=== PATIENT | male | born 1965 | race Caucasian/White ===

== ENCOUNTER 2025-04-27 20:32 | Inpatient (IN) | payer MEDICARE ==
[~2025-04-27] VITALS: Ht 185.4 cm; Wt 80.1 kg
[2025-04-27 21:10] LABS: BASOPHILS ABSOLUTE AUTO 0.05 K/mm3 (0.00-0.23); BASOPHILS PERCENT AUTO 1 % (0-2); EOSINOPHILS ABSOLUTE AUTO 0.03 K/mm3 (0.00-0.68); EOSINOPHILS PERCENT AUTO 0 % (0-6); Hematocrit 20.8 % (37.0-53.0); Hemoglobin 6.6 g/dL (13.5-17.5); IMMATURE GRAN ABSOLUTE AUTO 0.02 K/mm3 (0.00-0.10); IMMATURE GRAN PERCENT AUTO 0 % (0-1); LYMPHOCYTES ABSOLUTE AUTO 1.07 K/mm3 (0.84-5.20); LYMPHOCYTES PERCENT AUTO 16 % (21-46); MONOCYTES ABSOLUTE AUTO 0.64 K/mm3 (0.16-1.47); MONOCYTES PERCENT AUTO 9 % (4-13); Mean Corpuscular HGB Conc 31.7 g/dL (31.5-36.5); Mean Corpuscular Volume 78 fL (80-100); NEUTROPHILS ABSOLUTE AUTO 5.11 K/mm3 (1.96-9.15); NEUTROPHILS PERCENT AUTO 74 % (41-73); NRBC ABSOLUTE 0.00 K/mm3 (0.00-0.02); NRBC Auto 0.0 /100 WBC (0.0-0.2); Platelet Count 580 K/mm3 (150-400); RDW Coefficient Variation 21.6 % (11.7-14.2); RDW Standard Deviation 59.8 fL (35.1-46.3)
[2025-04-27 22:05] LABS: Alanine Aminotransfer (ALT/SGP 35.0 U/L (12-78); Albumin, Blood 3.7 g/dL (3.4-5.0); Albumin/Globulin Ratio 1.0 (0.8-1.8); Anion Gap 10.0 mmol/L (3-11); Aspartate Aminotrans (AST/SGOT 56.0 U/L (12-37); Bilirubin, Total 0.4 mg/dL (0.1-1.0); Blood Urea Nitrogen 8.0 mg/dL (8-24); CO2, Blood 28.0 mmol/L (21-32); Calcium, Blood 9.0 mg/dL (8.5-10.1); Chloride, Blood 81.0 mmol/L (98-108); Creatinine, Blood 0.47 mg/dL (0.60-1.20); Globulin, Blood 3.7 g/dL (2.2-4.0); Glucose, Blood 130.0 mg/dL (70-99); Potassium, Blood 3.3 mmol/L (3.5-5.5); Sodium, Blood 116.0 mmol/L (136-145); Total Protein, Blood 7.4 g/dL (6.4-8.2)
[2025-04-27] MEDS ORDERED: FLU VACC TS2025-26(6MOS UP)/PF 45 MCG/0.5 ML SYRINGE IM SCH (23:00)
[2025-04-27] MEDS ORDERED: [UNRECOGNIZED DRUG - CODE] PO (23:22)
[2025-04-27] MEDS ORDERED: Primidone50 MG PO (23:22)
[2025-04-27] MEDS ORDERED: LEVE500 PO ×2 (23:23→23:24)
[2025-04-28] VITALS (19 sets, daily range): BP systolic 113–200; BP diastolic 63–151
[2025-04-28 00:17] LABS: IMMATURE RETIC FRACTION 27.50 % (2.3-16.0); RETIC HGB EQUIVALENT 20.50 pg (28.20-36.60); RETICULOCYTE ABSOLUTE 0.0451 M/mm3 (0.0200-0.1100); RETICULOCYTE COUNT PERCENT 1.69 % (0.50-2.50)
[2025-04-28 01:16] LABS: Ferritin, Serum 9.0 ng/mL (26-388); Magnesium, Blood 1.7 mg/dL (1.6-2.4); Thyroid Stimulating Hormone 1.25 uIU/mL (0.360-4.800); Total Iron Binding Capacity 502.0 ug/dL (250-450); Uric Acid, Blood 2.3 mg/dL (3.5-7.2)
[2025-04-28 01:30] LABS: Lactate Dehydrogenase (Ld),Bld 328.0 U/L (100-240)
[2025-04-28 01:50] LABS: Phosphorus, Blood 2.7 mg/dL (2.5-4.9)
[2025-04-28 01:54] LABS: Osmolality, Serum 249.0 mos/KG (275-300)
[2025-04-28] MEDS ORDERED: Sod Ferric Gluc Complx/Sucrose 125 MG in NS 100 ML IV ONE (02:00)
--- NOTE | 2025-04-28 02:30 | NUR ---
ARRIVAL TO ICU: PT ARRIVED TO ICU 3 FROM ER @ 0139 04/28/2025. REPORT RECEIVED FROM COMPONENT LAB TECH. PT ARRIVED VIA GURNEY AND WAS TRANSFERRED TO BED VIA SHEET DRAW. PT IS A&OX4 GCS15. PT STATES THAT THEY ARE HAVING 8/10 BACK PAIN BUT NO CP OR SOB AT THIS TIME. PT IS ON 3% NS GTT PER EMR ORDERS. LUNG SOUNDS ARE CLEAR AND EQUAL, ON RA WITH SPO2 >95%. SINUS RYTHM, PT HAS BEEN HYPERTENSIVE BUT WHILE NOT REMAIN STILL WHEN ATEMTPTING TO CHECK BP, SBP: 150-190'S. HR: 80-90'S. IV: PERIPHERAL IN LAC. SKIN: HAS SPOT ON L HIP, PT STATES IT IS FROM RING [place], PICTURE IN CHART. LINES AND CORDS PLACED OUT REACH. CALL LIGHT PLACED WITHIN REACH.
[2025-04-28] MEDS ORDERED: NS 500 ML IV SCH (02:50)
[2025-04-28 03:19] LABS: Source, Urine Clean Catch
[2025-04-28 03:37] LABS: Bilirubin, Urine Neg (Neg); Glucose Qualitative, Urine Neg (Neg); Ketones, Urine Neg (Neg); Leukocyte Esterase, Urine Neg (Neg); Protein, Urine 2+ (Neg); Specific Gravity, Urine 1.010 (1.003-1.022); Urobilinogen, Urine NORM (Normal)
[2025-04-28 03:50] LABS: Color, Urine Yellow (P-Yellow); Red Blood Cells, Urine 0-2 /hpf (0-2); White Blood Cells, Urine 0-2 /hpf (0-5)
--- NOTE | 2025-04-28 06:23 | NUR ---
SHIFT SUMMARY: PT IS DOING WELL AND HAS BEEN RESTLESS IN BED. ON 3% NS PER EMR ORDERS AND RECIEVED 1 UNIT PRBC'S. PT STATES HAVING 8/10 BACK PAIN AND HAS BEEN GIVEN PAIN MEDS PER EMR ORDERS. PT DENIES ANY CP OR SOB DURING THE SHIFT. PT ON RA WITH SPO2 >95%. SINUS RYTHM, PT REMAINS HYPERTENSIVE BUT ALSO WON'T REMAIN STILL WHILE BLOOD PRESSURE CUFF IS CYCLING. HR: 60-90'S. IV: PERIPHERAL IN LAC, POWERGLIDE IN RUE. PT HAS BEEN HAVING THE URGE TO URINATED BUT HAS BEEN UNABLE TO. RAYMOND CATHTER WAS PLACED AND IS DRAINING TO GRAVITY. PT IS ABLE TO STAND WITH 2-PERSON ASSIST, THEY ARE WEAK AND SHAKY WHEN STANDING. LINES, CORDS, AND TUBES PLACED OUT OF REACH. CALL LIGHT PLACED WITHIN REACH, BED PLACED IN LOWEST POSITION AND BED ALARM IS ON.
--- NOTE | 2025-04-28 13:17 | NUR ---
TRANSFER NOTE: patient admitted with hyponatremia, sodium increased to 125 with hypertonic saline, hypertonic saline d/c'd. Patient order to PCU status, Dr Crews aware of urinary retention and indewelling pepper, wishes for folwy to remain for now. Report called to [facility] and patient transfered to PCU 3 at 13:10
--- NOTE | 2025-04-28 13:27 | NUR ---
PT ARRIVED IN THE ROOM PCU 03 VIA WHEELCHAIR PT ABLE TO STAND AND TRASNFER. REPORT RECEIVED FROM GONZÁLEZ TORRES. NOVEMBER AT THE BEDS SIDE REQUESTING TO SPEAK WITH THE PROVIDER. PROVIDER CALLED AND WE'LL BE HERE IN AN HR OR TWO. MADE AWARE. PT NOW RESTING COMFORTABLE IN BED. CALL LIGHTS IN REACH WILL CONTINUE TO MONITOR
[2025-04-28 15:45] LABS: Hematocrit 27.7 % (37.0-53.0); Hemoglobin 8.8 g/dL (13.5-17.5); Mean Corpuscular HGB Conc 31.8 g/dL (31.5-36.5); Mean Corpuscular Volume 82 fL (80-100); NRBC ABSOLUTE 0.00 K/mm3 (0.00-0.02); NRBC Auto 0.0 /100 WBC (0.0-0.2); Platelet Count 635 K/mm3 (150-400); RDW Coefficient Variation 19.6 % (11.7-14.2); RDW Standard Deviation 57.1 fL (35.1-46.3)
[2025-04-28] MEDS ORDERED: Polyethylene Glycol 3350 17 gm PO PRN (18:00)
[2025-04-28] MEDS ORDERED: Docusate Sodium/Senna 1 Tab PO SCH (21:00)
[2025-04-29 03:42] VITALS: BP 152/107
[2025-04-29 03:55] LABS: BASOPHILS ABSOLUTE AUTO 0.06 K/mm3 (0.00-0.23); BASOPHILS PERCENT AUTO 1 % (0-2); EOSINOPHILS ABSOLUTE AUTO 0.20 K/mm3 (0.00-0.68); EOSINOPHILS PERCENT AUTO 2 % (0-6); Hematocrit 26.2 % (37.0-53.0); Hemoglobin 8.4 g/dL (13.5-17.5); IMMATURE GRAN ABSOLUTE AUTO 0.05 K/mm3 (0.00-0.10); IMMATURE GRAN PERCENT AUTO 0 % (0-1); LYMPHOCYTES ABSOLUTE AUTO 1.85 K/mm3 (0.84-5.20); LYMPHOCYTES PERCENT AUTO 16 % (21-46); MONOCYTES ABSOLUTE AUTO 1.12 K/mm3 (0.16-1.47); MONOCYTES PERCENT AUTO 10 % (4-13); Mean Corpuscular HGB Conc 32.1 g/dL (31.5-36.5); Mean Corpuscular Volume 80 fL (80-100); NEUTROPHILS ABSOLUTE AUTO 8.37 K/mm3 (1.96-9.15); NEUTROPHILS PERCENT AUTO 72 % (41-73); NRBC ABSOLUTE 0.00 K/mm3 (0.00-0.02); NRBC Auto 0.0 /100 WBC (0.0-0.2); Platelet Count 576 K/mm3 (150-400); RDW Coefficient Variation 20.1 % (11.7-14.2); RDW Standard Deviation 58.4 fL (35.1-46.3)
[2025-04-29 04:28] LABS: Alanine Aminotransfer (ALT/SGP 35.0 U/L (12-78); Albumin, Blood 3.8 g/dL (3.4-5.0); Albumin/Globulin Ratio 1.0 (0.8-1.8); Anion Gap 6.0 mmol/L (3-11); Aspartate Aminotrans (AST/SGOT 47.0 U/L (12-37); Bilirubin, Total 0.4 mg/dL (0.1-1.0); Blood Urea Nitrogen 7.0 mg/dL (8-24); CO2, Blood 31.0 mmol/L (21-32); Calcium, Blood 8.7 mg/dL (8.5-10.1); Chloride, Blood 92.0 mmol/L (98-108); Creatinine, Blood 0.47 mg/dL (0.60-1.20); Globulin, Blood 3.8 g/dL (2.2-4.0); Glucose, Blood 120.0 mg/dL (70-99); Potassium, Blood 3.4 mmol/L (3.5-5.5); Sodium, Blood 126.0 mmol/L (136-145); Total Protein, Blood 7.6 g/dL (6.4-8.2)
--- NOTE | 2025-04-29 05:35 | NUR ---
SHIFT SUMMARY A/OX4, VERBALIZES NEEDS AND USES CALL LIGHT APPROPRIATELY. ENDORSES LOWER BACK PAIN, TREATED PER EMAR. ON ROOM AIR, SATS ABOVE 95%. ON CONTINUOUS CARDIAC TELEMETRY. SINUS ARRHYTHMIA. BP 140 S-160 S. HE IS A 1P ASSIST TO THE BEDSIDE COMMODE, VERY WEAK, UNSTEADY GAIT. FREQUENT ATTEMPTS FOR BM, BUT UNSUCCESSFUL, ADMINISTERED STOOL SOFTENERS. K+ AT 3.4 WITH MORNING LABS, NOTIFIED, POTASSIUM REPLACEMENT ORDERED AND ADMINISTERED.
[2025-04-29 08:06] VITALS: BP 161/88
[2025-04-29] MEDS ORDERED: NS 1,000 ML IV SCH (08:35)
[2025-04-29] MEDS ORDERED: Iron Dextran 50 MG / ML 2ML Vial IV ONE (08:50)
[2025-04-29 09:24] LABS: Hematocrit 26.7 % (37.0-53.0); Hemoglobin 8.3 g/dL (13.5-17.5); Mean Corpuscular HGB Conc 31.1 g/dL (31.5-36.5); Mean Corpuscular Volume 82 fL (80-100); NRBC ABSOLUTE 0.00 K/mm3 (0.00-0.02); NRBC Auto 0.0 /100 WBC (0.0-0.2); Platelet Count 609 K/mm3 (150-400); RDW Coefficient Variation 19.9 % (11.7-14.2); RDW Standard Deviation 59.0 fL (35.1-46.3)
[2025-04-29] MEDS ORDERED: Iron Dextran 975 MG in NS 250 ML IV ONE (10:00)
[2025-04-29 10:09] LABS: IMMATURE RETIC FRACTION 25.80 % (2.3-16.0); RETIC HGB EQUIVALENT 19.30 pg (28.20-36.60); RETICULOCYTE ABSOLUTE 0.1171 M/mm3 (0.0200-0.1100)
[2025-04-29 10:11] LABS: RETICULOCYTE COUNT PERCENT 3.58 % (0.50-2.50)
[2025-04-29 12:42] VITALS: BP 174/91
[2025-04-29] MEDS ORDERED: HydrALAZINE HCl 20 MG / ML 1ML Vial IV PRN (13:50)
[2025-04-29] MEDS ORDERED: Diazepam 5 MG / ML 2ML SYR IV PRN (13:50)
[2025-04-29 15:48] VITALS: BP 138/78
--- NOTE | 2025-04-29 18:02 | NUR ---
PT SUMMARY; MRI OF HEAD CURRENTLY BEING DONE AT THIS TIME, FIRST ATTEMPT WAS NOT SUCCESSFUL DUE TO CLAUSTROPHOBIA. VALIUM IV GIVEN PRIOR TO MRI. VITALS HAS BEEN STABLE. PT MEDICATED FOR BACK PAIN AND HEADACHE PER EMAR. IRON TRANSFUSED THIS MORNING. HGB STABLE. LAST SODIUM WAS 127. PT HAD A LOOSE BM TWICE THIS MORNING DARK GREEN IN COLOR. PT HAS BEEN ASKING FOR SOME LAXATIVE THIS MORNING WHICH MIRALX WAS GIVEN THEN THIS AFTERNOON PT WAS ASKING FOR ANTI DIARRHEAL PT HAS BEEN IN THE COMMODE MULTIPLE TIMES WITH NO BM RESULT. CONCERNS REPORTED TO DR MARLEY, AWAITING FOR MRI RESULT AT THIS TIME. AT THE BEDSIDE AWARE OF THE PLAN OF CARE. RAYMOND DRAINING DARK ORANGE URINE VIA GRAVITY. NO OTHER ISSUES REPORTED WILL REPORT TO ONCOMING SHIFT
[2025-04-29 19:28] VITALS: BP 148/93
[2025-04-30] VITALS (9 sets, daily range): BP systolic 135–175; BP diastolic 81–104
[2025-04-30 04:10] LABS: BASOPHILS ABSOLUTE AUTO 0.07 K/mm3 (0.00-0.23); BASOPHILS PERCENT AUTO 0 % (0-2); EOSINOPHILS ABSOLUTE AUTO 0.12 K/mm3 (0.00-0.68); EOSINOPHILS PERCENT AUTO 1 % (0-6); Hematocrit 27.4 % (37.0-53.0); Hemoglobin 8.5 g/dL (13.5-17.5); IMMATURE GRAN ABSOLUTE AUTO 0.09 K/mm3 (0.00-0.10); IMMATURE GRAN PERCENT AUTO 0 % (0-1); LYMPHOCYTES ABSOLUTE AUTO 1.40 K/mm3 (0.84-5.20); LYMPHOCYTES PERCENT AUTO 7 % (21-46); MONOCYTES ABSOLUTE AUTO 1.21 K/mm3 (0.16-1.47); MONOCYTES PERCENT AUTO 6 % (4-13); Mean Corpuscular HGB Conc 31.0 g/dL (31.5-36.5); Mean Corpuscular Volume 83 fL (80-100); NEUTROPHILS ABSOLUTE AUTO 17.91 K/mm3 (1.96-9.15); NEUTROPHILS PERCENT AUTO 86 % (41-73); NRBC ABSOLUTE 0.00 K/mm3 (0.00-0.02); NRBC Auto 0.0 /100 WBC (0.0-0.2); Platelet Count 584 K/mm3 (150-400); RDW Coefficient Variation 21.0 % (11.7-14.2); RDW Standard Deviation 62.6 fL (35.1-46.3)
[2025-04-30 04:36] LABS: Anion Gap 8.0 mmol/L (3-11); Blood Urea Nitrogen 9.0 mg/dL (8-24); CO2, Blood 27.0 mmol/L (21-32); Calcium, Blood 8.7 mg/dL (8.5-10.1); Chloride, Blood 94.0 mmol/L (98-108); Creatinine, Blood 0.47 mg/dL (0.60-1.20); Glucose, Blood 122.0 mg/dL (70-99); Potassium, Blood 3.7 mmol/L (3.5-5.5); Sodium, Blood 125.0 mmol/L (136-145)
[2025-04-30 05:46] LABS: HAPTOGLOBIN 144 mg/dL (30-200)
--- NOTE | 2025-04-30 05:51 | NUR ---
SHIFT SUMMARY A/OX4, VERBALIZES NEEDS AND USES CALL LIGHT APPROPRIATELY. PT ENDORSED HEADACHE AND CHRONIC LOWER BACK PAIN, TREATED PER MAR. ON ROOM AIR, SATS ABOVE 95%. BREATHING IS SHALLOW AND UNLABORED. HE REMAINS UNSTEADY ON HIS FEET AND IS A 1/2P ASSIST. FREQUENT ATTEMPTS AT BM WITHOUT SUCCESS. PT ABDOMEN NOTABLY MORE DISTENDED THAN LAST NIGHT. PT HAVING LOOSE BOWEL MOVEMENTS DURING DAY SHIFT, BUT NO BM THIS SHIFT. PT REPORTED ABDOMINAL PAIN AND TENDERNESS AT 8/10. MD MADE AWARE OF CHANGE IN CONDITION, STAT ABDOMINAL CT ORDERED. SEE CT RESULTS. RAYMOND IN PLACE AND DRAINING TO GRAVITY, SEDIMENT AND SMALL AMOUNTS OF BLOOD NOTED IN RAYMOND BAG. URINE IS DARK AND ORANGE.
[2025-04-30 09:31] LABS: Ferritin, Serum 160.0 ng/mL (26-388); Sodium, Blood 127.0 mmol/L (136-145); Total Iron Binding Capacity 513.0 ug/dL (250-450)
[2025-04-30 09:32] LABS: Osmolality, Serum 271.0 mos/KG (275-300)
[2025-04-30] MEDS ORDERED: Furosemide 10 MG / ML 2ML Vial IV SCH (16:40)
--- NOTE | 2025-04-30 18:11 | NUR ---
SHIFT SUMMARY: PT A&Ox4, NAPS T/OUT THE DAY, COOPERATIVE W/CARE, ABLE TO MAKE NEEDS KNOWN. PT MEDICATED PER EMAR FOR C/O HEADACHE AND LOW BACK PAIN. PT DENIES SOB, LS DIM ON R SIDE, AUDIBLE RHONCHI OCCASIONALLY HEARD ON EXHALATION THAT CLEARS WHEN PT IS ENCOURAGED TO COUGH/CLEAR THROAT, PT STATES THIS IS NORMAL FOR HIM x4 YEARS, O2 SATS >93% ON RA. SR/ST 90s-120 ON MONITOR, PT DENIES CHEST PAIN/PRESSURE. PT W/FREQUENT, SMALL, SOFT BMs. PT MEDICATED PER EMAR FOR GAS, NO STOOL SOFTENERS PROVIDED THIS SHIFT. PT CONTINUES SHAKY/UNSTEADY, IS 1P ASSIST TO BSC. INDWELLING RAYMOND CATHETER DRAINING DARK TRUDI COLORED URINE W/OCCASIONAL BLOOD CLOTS. BLADDER SCAN x1 THIS SHIFT FOR PT C/O FEELING URGE TO URINATE, 6 MLS ON SCAN, U.O. RATE APPROX 65ML/HR PROVIDER NOTIFIED W/ORDERS TO INCREASE NS RATE TO 150ML/HR AND TO INITIATE IV DIURETIC. URINE OUTPUT HAS DOUBLED SINCE DIURETIC ADMINISTRATION AND URINE HAS LIGHTENED TO YELLOW W/SEDIMENT AT THIS TIME. PT RESTING IN BED, CALL LIGHT IN REACH.
[2025-04-30 20:23] LABS: ADRENOCORTICOTROPIC HORMONE 44.5 pg/mL (7.2-63.3)
[2025-04-30 20:45] LABS: C-REACTIVE PROTEIN, EXT RANGE 10.2 mg/dL (0.000-0.300); Sodium, Blood 126.0 mmol/L (136-145)
[2025-05-01] VITALS (11 sets, daily range): BP systolic 145–208; BP diastolic 78–112
--- NOTE | 2025-05-01 04:37 | NUR ---
SHIFT SUMMARY: PATIENT IS A&OX4. PATIENT HAS PLACED MULTIPLE [id number] CALL LIGHT REQUESTS THROUGHOUT SHIFT, OFTEN WITHIN ~5 MINS OF STAFF LEAVING PATIENTS ROOM. CALLS PRIMARILY FOR ASSISTANCE WITH REPOSITIONING BLANKETS OR OBTAINING DRINKS/SNACKS, DESPITE STAFF ADDRESSING THE 5 P'S (PAIN, POSITIONING, PERSONAL POSSESSIONS, POTTY USE, AND PROXIMITY) PRIOR TO EXITING HIS ROOM. PATIENT RE-EDUCATED MULTIPLE TIMES REGARDING CLUSTERING OF CARE AND ENCOURAGED TO VERBALIZE NEEDS BEFORE STAFF DEPARTURE; PATIENT VERBALIZED UNDERSTANDING BUT CONTINUED FREQUENT REQUESTS THROUGHOUT SHIFT. PATIENT HAD MULTIPLE SMALL BMS THROUGHOUT SHIFT, LOOSE BROWN/GREEN BMS DURING SHIFT; HALF OF THE SHIFT OUTPUT CONSISTED OF ONLY FLATUS. PRN SIMETHICONE ADMINISTERED PER MAR. PATIENT REMAINED AWAKE OVERNIGHT; MD CHEN NOTIFIED. MEDICATIONS ADMINISTERED PER MAR INFLUSED TRAZADONE PO X1, AMBIEN PO X1, ATARAX PO PRN, OXY PO PRN, AND TYLENOL PO PRN WITH NO NOTED IMPROVEMENT IN SLEEP, ANXIETY, OR PAIN RELIEF. PATIENT ENCOURAGED TO TRANSFER FROM BED TO BSC IF FEELING SAFE ENOUGH TO DO SO, AND ENCOURAGED TO SELF WIPE HE WOULD AT HOME DUE TO ENCOURAGING INDEP. PATIENT VERBALIZED UNDERSTANDING BUT CONTINUED TO REQUEST FREQUENT STAFF ASSISTANCE TO WIPE AND MOVE TO BSC OR BACK TO BED. TELE SHOWS SINUS TACH WITH HR IN THE 110'S BPM. OTHER VITALS ARE STABLE AND IS ON ROOM AIR WITH >90% SPO2. RAYMOND DRAINING TO GRAVITY WITH ODOROUS YELLOW URINE OUPUT. 1P SBA TO MOVE FROM BED TO BSC. ENCOURAGED PATIENT TO HAVE DIFFERENT PO LIQUIDS OTHER THAN WATER DUE TO IT POSSIBLY DILUTING HIS LABS AND FURTHER CAUSING HIS SODIUM TO BE LOW. PATIENT VERBALIZED UNDERSTANDING OF EDUCATION BUT WOULD REFUSE OTHER LIQUIDS WITH INCREASED SODIUM OFFERED THROUGHOUT SHIFT. MD CHEN NOTIFIED OF WBC CLIMBING HIGHER AND ASKED IF IV ABX SHOULD BE STARTED, MD ONLY PLACED A PCR OF STOOL SAMPLE FOR POSSIBLE SOURCE OF INFECTION AND THEN IV ABX WOULD BE ORDERED AFTER RESULTS WERE IN. STOOL SAMPLE COLLECTED AND STILL PENDING RESULTS - NO IV ABX ORDERED AT THIS TIME. PATIENT IS CURRENTLY LAYING IN BED WITH CALL LIGHT IN REACH. P
[2025-05-01 04:38] LABS: BASOPHILS ABSOLUTE AUTO 0.08 K/mm3 (0.00-0.23); BASOPHILS PERCENT AUTO 0 % (0-2); EOSINOPHILS ABSOLUTE AUTO 0.01 K/mm3 (0.00-0.68); EOSINOPHILS PERCENT AUTO 0 % (0-6); Hematocrit 26.6 % (37.0-53.0); Hemoglobin 8.4 g/dL (13.5-17.5); IMMATURE GRAN ABSOLUTE AUTO 0.25 K/mm3 (0.00-0.10); IMMATURE GRAN PERCENT AUTO 1 % (0-1); LYMPHOCYTES ABSOLUTE AUTO 0.51 K/mm3 (0.84-5.20); LYMPHOCYTES PERCENT AUTO 2 % (21-46); MONOCYTES ABSOLUTE AUTO 0.89 K/mm3 (0.16-1.47); MONOCYTES PERCENT AUTO 3 % (4-13); Mean Corpuscular HGB Conc 31.6 g/dL (31.5-36.5); Mean Corpuscular Volume 82 fL (80-100); NEUTROPHILS ABSOLUTE AUTO 24.32 K/mm3 (1.96-9.15); NEUTROPHILS PERCENT AUTO 93 % (41-73); NRBC ABSOLUTE 0.00 K/mm3 (0.00-0.02); NRBC Auto 0.0 /100 WBC (0.0-0.2); Platelet Count 535 K/mm3 (150-400); RDW Coefficient Variation 22.3 % (11.7-14.2); RDW Standard Deviation 64.4 fL (35.1-46.3)
[2025-05-01 05:01] LABS: Anion Gap 11.0 mmol/L (3-11); Blood Urea Nitrogen 11.0 mg/dL (8-24); CO2, Blood 25.0 mmol/L (21-32); Calcium, Blood 8.5 mg/dL (8.5-10.1); Chloride, Blood 96.0 mmol/L (98-108); Creatinine, Blood 0.44 mg/dL (0.60-1.20); Glucose, Blood 113.0 mg/dL (70-99); Potassium, Blood 3.5 mmol/L (3.5-5.5); Sodium, Blood 128.0 mmol/L (136-145)
[2025-05-01 05:59] LABS: Campylobacter Sp Not Detected (NOT DETECT); E. Coli O157 Not Detected (NOT DETECT); Enteroaggregative E. coli-EAEC Not Detected (NOT DETECT); Enteropathogenic E. coli-EPEC Not Detected (NOT DETECT); Enterotoxigenic E. coli-ETEC Not Detected (NOT DETECT); Salmonella Sp Not Detected (NOT DETECT); Shiga Toxin-prod E. coli-STEC Not Detected (NOT DETECT); Shigella/Enteroin E. coli-EIEC Not Detected (NOT DETECT); Vibrio Sp Not Detected (NOT DETECT)
[2025-05-01] MEDS ORDERED: NS 1,000 ML IV SCH (08:00)
[2025-05-01 11:07] LABS: Source, Urine Foley catheter
[2025-05-01 11:15] LABS: Bilirubin, Urine Neg (Neg); Color, Urine Yellow (P-Yellow); Glucose Qualitative, Urine Neg (Neg); Ketones, Urine Neg (Neg); Leukocyte Esterase, Urine 3+ (Neg); Protein, Urine 3+ (Neg); Specific Gravity, Urine 1.020 (1.003-1.022); Urobilinogen, Urine NORM (Normal)
[2025-05-01 11:27] LABS: White Blood Cells, Urine TNTC /hpf (0-5)
[2025-05-01 11:28] LABS: Red Blood Cells, Urine TNTC /hpf (0-2)
[2025-05-01] MEDS ORDERED: CefTRIAXone Sodium 1,000 MG in NS 100 ML IV SCH (14:00)
--- NOTE | 2025-05-01 15:00 | NUR ---
UPDATE PATIENT INCREASINGLY HYPERTENSIVE, REPORTING INTENSE HEADACHE AND ABDOMINAL PAIN. PATIENT DENIES CHEST PAIN OR PRESSURE. THIS RN NOTICED INCREASED WORK OF BREATHING AND SHORTNESS OF BREATH EVIDENCED BY TACHYPNEA AND INCREASED ACCESSORY MUSCLE USE. SPO2 >90% ON RA. PATIENT MEDICATED PER EMAR. PROVIDER MADE AWARE OF CHANGE IN PATIENT CONDITION, NEW ORDERS RECEIVED.
[2025-05-01] MEDS ORDERED: Furosemide 10 MG / ML 2ML Vial IV SCH (16:45)
[2025-05-01 17:52] LABS: Influenza A/2009-H1 Not Detected (NOT DETECT); SARS-Cov-2 (COVID-19), BioFire Not Detected (NOT DETECT)
--- NOTE | 2025-05-01 18:51 | NUR ---
SPOKE WITH PROVIDER DR. ARA MARLEY MD REGARDING PT PLAN OF CARE AND INCREASE WOB, TACHYCARDIA, LOW UOP FOR INTAKE INCLUDING IVF. CONCERN FOR FVO AND BNP ORDERED, WNL. DISCUSSED SIADH VS GARDEN WORKER DIFFERENTIAL AND AT THIS TIME PLAN FOR IVF @ 200ML HR CONTINOUS, CXR, 1L ALL FLUID RESTRICTION, RVP, AND STRICT I/O PER PROVIDER, IV LASIX X1, AND DISCUSSED ANTIHYPERTENSIVES. SEE EMAR/ORDERS FOR DETAILS. REQUESTED ECHOCARDIOGRAM TO ASSESS FLUID STATUS AND MILD PERICADIAL EFFUSION PER IMAGING, MD DECLINED AT THIS TIME.
[2025-05-02] VITALS (9 sets, daily range): BP systolic 146–175; BP diastolic 76–96
--- NOTE | 2025-05-02 06:49 | NUR ---
SHIFT SUMMARY: PT A&OX4 ANXIOUS AND OCCASIONALLY AGITATED. ABLE TO FOLLOW COMMANDS AND CALLS FREQUENTLY. HYPERTENSIVE SBP 170S. PRN 10MG IV HYDRALAZINE X1 GIVEN. SBP 150S AFTER MEDICATING. PT BECAME ST 120S-130S AND TACHYPNEIC STATING HE FELT HE WAS HAVING A PANIC ATTACK. MEDICATED WITH HYDROXAZINE PER EMAR AND HR SR 90S. PT MAINTAINED >92% ON RA.1 PERSON ASSIST TO BSC. FREQUENT CALLS TO USE BSC BUT ONLY PASSED FLATULENCE. ONE BM DURING SHIFT. BM MEDIUM, LOOSE. RAYMOND IN PLACE DRAINING TO GRAVITY. INFUSING NS @200 ML/HR. PT BECAME AGITATED ABOUT FLUID RESTRICTION. EDUCATION WAS PROVIDED ON IMPORTANCE OF FOLLOWING RESTRICTION, BUT PT STATED HE DID NOT CARE AND WANTED MORE WATER. THIS NURSE EDUCATED THAT GOING OVER NIGHT TIME FLUID RESTRICTION WOULD RESULT IN LESS FLUID INTAKE FOR DAYSHIFT AND PT VERBALIZED THAT IS OK WITH HIM. PT WENT 50 ML ABOVE NIGHT FLUID RESTRICTION. BED IS LOW AND LOCKED AND CALL LIGHT WITHIN REACH. CONTINUE WITH CURRENT PLAN OF CARE.
[2025-05-02 07:13] LABS: Anion Gap 13.0 mmol/L (3-11); Blood Urea Nitrogen 9.0 mg/dL (8-24); CO2, Blood 23.0 mmol/L (21-32); Calcium, Blood 8.3 mg/dL (8.5-10.1); Chloride, Blood 97.0 mmol/L (98-108); Creatinine, Blood 0.43 mg/dL (0.60-1.20); Glucose, Blood 101.0 mg/dL (70-99); Potassium, Blood 3.5 mmol/L (3.5-5.5); Sodium, Blood 129.0 mmol/L (136-145)
[2025-05-02 07:23] LABS: BASOPHILS ABSOLUTE AUTO 0.07 K/mm3 (0.00-0.23); BASOPHILS PERCENT AUTO 0 % (0-2); EOSINOPHILS ABSOLUTE AUTO 0.01 K/mm3 (0.00-0.68); EOSINOPHILS PERCENT AUTO 0 % (0-6); Hematocrit 26.8 % (37.0-53.0); Hemoglobin 8.2 g/dL (13.5-17.5); IMMATURE GRAN ABSOLUTE AUTO 0.10 K/mm3 (0.00-0.10); IMMATURE GRAN PERCENT AUTO 1 % (0-1); LYMPHOCYTES ABSOLUTE AUTO 0.87 K/mm3 (0.84-5.20); LYMPHOCYTES PERCENT AUTO 4 % (21-46); MONOCYTES ABSOLUTE AUTO 1.11 K/mm3 (0.16-1.47); MONOCYTES PERCENT AUTO 5 % (4-13); Mean Corpuscular HGB Conc 30.6 g/dL (31.5-36.5); Mean Corpuscular Volume 85 fL (80-100); NEUTROPHILS ABSOLUTE AUTO 18.51 K/mm3 (1.96-9.15); NEUTROPHILS PERCENT AUTO 90 % (41-73); NRBC ABSOLUTE 0.00 K/mm3 (0.00-0.02); NRBC Auto 0.0 /100 WBC (0.0-0.2); Platelet Count 487 K/mm3 (150-400); RDW Coefficient Variation 23.4 % (11.7-14.2); RDW Standard Deviation 70.9 fL (35.1-46.3)
[2025-05-02] MEDS ORDERED: Lactobacil 2-S.Thermo-Bifido 1 1 Cap PO SCH (09:00)
[2025-05-02] MEDS ORDERED: LEVETIRACETAM1000 M1 PO (09:39)
[2025-05-02] MEDS ORDERED: KEPPRA1000 M1 PO (09:39)
[2025-05-02] MEDS ORDERED: Sod Ferric Gluc Complx/Sucrose 125 MG in NS 100 ML IV SCH (10:00)
--- NOTE | 2025-05-02 12:18 | NUR ---
Update Pt A&O x4. VSS. Spo2 > 92% on RA. Increased RR w/ minimal activity. Pt w/ nonproductive cough w/ pt reporting "I've always had that after smoking." Monitor showing SR-ST, HR 70s-130s. Pt frustrated w/ fluid restriction, stating certain beverages shouldn't count towards fluid restriction. Fluid restriction education provided that all oral fluids count towards fluid restriction. Pt disagreeing. Pt then questioning fluid restriction to MD during doctor bedside rounding. MD then providing education to pt regarding all fluids counting towards fluid restriction. MD also w/ order to increase fluid restriction amount from 1,000ml a day to 1,200ml a day for pt. Pt reports passing gas this shift but denies BM so far this shift. Pt w/ pepper cath patent & draining clear yellow urine. Pt denies difficulty voiding prior to coming to hospital. Spouse at bedside stating, "no that's not true. He's had a problem going to the bathroom long before coming to the hospital." Unclear when difficulty voiding began. Pt c/o headache & backache. Pt spouse reports headache is new for pt but states pt "has always c/o back pain." MD made aware of pt c/o pain. Pain medication provided per emar/pt request w/ pt report of some improvement.
--- NOTE | 2025-05-02 18:27 | NUR ---
End of Shift Pt made medical w/ telemetry status. No further changes from previous note. Pt continues to be A&O x4. VSS. Spo2 > 92% on RA. Monitor now showing showing SR-ST, HR 90s-120s. Pt w/ 1 liquid dark brown stool this shift.
[2025-05-03] VITALS (9 sets, daily range): BP systolic 122–181; BP diastolic 74–102
--- NOTE | 2025-05-03 04:12 | NUR ---
Assumed care of pt at 1900. Pt AxOx4, [place] and follows commands. Medicating for HTN per EMAR. Pt on RA other VSS. Up to bedside commode with assistance. 1 BM this evening. Carlos catheter patent and draining to gravity. Bed in lowest position and call light within reach.
[2025-05-03 04:15] LABS: Hematocrit 30.5 % (37.0-53.0); Hemoglobin 9.2 g/dL (13.5-17.5); Mean Corpuscular HGB Conc 30.2 g/dL (31.5-36.5); Mean Corpuscular Volume 86 fL (80-100); NRBC ABSOLUTE 0.00 K/mm3 (0.00-0.02); NRBC Auto 0.0 /100 WBC (0.0-0.2); Platelet Count 401 K/mm3 (150-400); RDW Coefficient Variation 24.1 % (11.7-14.2); RDW Standard Deviation 75.0 fL (35.1-46.3)
[2025-05-03 04:52] LABS: Anion Gap 10.0 mmol/L (3-11); Blood Urea Nitrogen 9.0 mg/dL (8-24); CO2, Blood 23.0 mmol/L (21-32); Calcium, Blood 8.6 mg/dL (8.5-10.1); Chloride, Blood 96.0 mmol/L (98-108); Creatinine, Blood 0.51 mg/dL (0.60-1.20); Glucose, Blood 118.0 mg/dL (70-99); Potassium, Blood 3.3 mmol/L (3.5-5.5); Sodium, Blood 126.0 mmol/L (136-145)
--- NOTE | 2025-05-03 05:04 | NUR ---
MD Garza notified Pts NA:126 and K+:3.3. No new orders at this time.
--- NOTE | 2025-05-03 14:23 | NUR ---
Call to MD Hernandez Pt c/o restless legs, stating "I need something for my legs. I can't stop moving them." Pt spouse then also stating, "he also has a spot I was thinking is ringworm. I looked it up online & ordered something from [employer] that is for ringworm, so I've been putting that on it & it's improved." This RN looking at area of concern found on pt's outer thigh. Spot appears a purple bruise w/ a scabbed line within. MD Hernandez notified of pt c/o restless legs & spot on outer thigh w/ spouse concern. states will review need for medication & will assess site tomorrow.
--- NOTE | 2025-05-03 17:07 | NUR ---
End of Shift Pt medical w/ telemetry status. A&O x4. VSS. Spo2 > 92% on RA. Monitor showing SR-ST. Pt reporting refusal to work w/ physical therapy upon care assumption this morning. Pt encouraged to work w/ physical therapy & get out of bed & move. PT reminded of importance for movement. Pt capable, but lacking in motivation. Pt did work w/ physical therapy, but physical therapy reported pt unwilling to get out of bed. Pt only getting out of bed for BSC use this shift despite staff encouragement. Pt requesting staff to pull blankets up & do things pt is capable of doing. Pt c/o restless legs. Pt encouraged to exercise legs. Warm blanket applied to legs & MD w/ order for medication, see emar. Pt declines suggestion for leg exercises. Pt c/o feeling "gassy" medication provided per emar. Pt continent of liquid dark brown stool.
[2025-05-03] MEDS ORDERED: UREA 15 GM POWD.PACK PO SCH (21:00)
[2025-05-04 03:54] VITALS: BP 164/93
--- NOTE | 2025-05-04 04:30 | NUR ---
Assumed care of Pt at 1900. Pt alert and oriented x 4. Pt continues to have HTN requiring use of PRN BP meds. All other VSS. Nephrology @ bedside to see pt and orders received for a 24hr urine protein collection. Pt had several small liquid BMs. Currently remains on 1L fluid restriction. Bed in lowest position and call light within reach.
[2025-05-04 04:50] LABS: Albumin, Blood 2.7 g/dL (3.4-5.0); Anion Gap 9 mmol/L (3-11); Blood Urea Nitrogen 20 mg/dL (8-24); CO2, Blood 27 mmol/L (21-32); Calcium, Blood 8.3 mg/dL (8.5-10.1); Chloride, Blood 97 mmol/L (98-108); Creatinine, Blood 0.47 mg/dL (0.60-1.20); Glucose, Blood 116 mg/dL (70-99); Phosphorus, Blood 2.5 mg/dL (2.5-4.9); Potassium, Blood 3.4 mmol/L (3.5-5.5); Sodium, Blood 130 mmol/L (136-145)
[2025-05-04] MEDS ORDERED: Sodium Phosphate 10 MM in NS 250 ML IV ONE (05:20)
[2025-05-04 07:33] VITALS: BP 179/99
[2025-05-04] MEDS ORDERED: Peg/Electrolytes 4,000 ML BTL PO ONE (09:25)
[2025-05-04 12:10] VITALS: BP 171/98
[2025-05-04 12:14] LABS: Potassium, Blood 3.6 mmol/L (3.5-5.5); Sodium, Blood 129.0 mmol/L (136-145)
--- NOTE | 2025-05-04 13:10 | NUR ---
Low Sodium Sodium decrease to 129. MD Gottlieb w/ order to give additional one time dose of 2 gm sodium tabs, see order, then recheck Na & K again at 1800 & call MD castellano/ results by 1900.
[2025-05-04 13:59] VITALS: BP 154/109
--- NOTE | 2025-05-04 15:38 | NUR ---
Transfer to medical floor Pt medical w/ telemetry status. A&O x4. VSS. BP elevated, requiring PRN PO hydralazine this shift. Monitor showing SR, HR 70s. Spo2 > 92% on RA. Pt c/o headache & back ache, medicating per emar/pt request w/ pt report of improvement. Pt on fluid restriction. Carlos cath patent & draining yellow urine. Carlos & collection container both on ice for 24 hr urine collection that will finish 2200 tonight. Pt to start golytely @ 1700 per MD Cardenas request for scope tomorrow morning, see nurse notify order. Pt w/ 2 liquid brown stools this shift. Pt 1 person assist to BSC. Pt reports inability to put weight on RLE. Pt reports "it's been that way for years." Pt reports independent ambulation at baseline, denying cane or FWW use, stating "I just walk with a limp." Pt only out of bed to use BSC this shift. Pt refusing any other activity despite encouragement. Pt requesting staff to pull up blankets. Pt reiterated importance of movement & independence w/ tasks pt is capable of. Pt then demonstrating ability to pull own blankets up in bed. Pt spouse notified of pt transfer to medical floor rm [id number]. Report given to accepting medical floor nurse assuming care of pt.
--- NOTE | 2025-05-04 15:39 | NUR ---
ASSUMPTION OF CARE: PATIENT ARRIVED TO FLOOR AT 1530 AFTER RECEIVING REPORT FROM BRIAN LEPE. PATIENT ARRIVED VIA BED. POWERGLIDE JABARI PATENT AND FLUSHES, BUT DOES NOT DRAW. AREA OF RED, RAISED RASH LEFT AC REGION C/W RXN TO COBAN OR ADHESIVE. RAYMOND PATENT AND DRAINING YELLOW URINE TO GRAVITY. RAYMOND AND 24-HOUR URINE CONTAINER ON ICE FOR 24-HOUR URINE CATCH. PT TO START GO-LYTELY TO START AT 1500 TODAY AND WILL CONTRADICT 1200mL FLUID RESTRICTION. PROVIDERS AWARE. ANTICIPATE BLOOD DRAW AT [address] KURTZ AT 1900 DESPITE GOLYTELY FLUIDS AND ELECTROLYTES BEGINNING AN HOUR PRIOR. [facility] LITER[facility]Y CONSULTANT WILL NOTIFY OF PT'S TRANSFER AND ANSWER ANY QUESTIONS SHE MAY HAVE RELATING TO HIS CARE PRIOR TO TRANSFER. PT IN ISO FOR NOROVIRUS. TELE ORDERED. ANTICIPATE NPO AFTER MIDNIGHT FOR EGD AND COLO TOMORROW.
[2025-05-04 15:40] VITALS: BP 165/96
--- NOTE | 2025-05-04 16:13 | NUR ---
PCU Transfer at 1530, patient is ISO for NOROvirus, has a 1200 fluid restriction, came with a pepper and a telli. At 5pm, per the R.N. the fluid restriction is paused for a regimen of GO LIGHTLY. He also came with a 24 hour Urine Collection canister. both are on ice. Informed by emir on PCU he only has 300 ml remaining of fluid restriction. We are also informed that its best for us to heavily encourage independance. Vitals and fluid remainder provided, comfortable in bed, commode sitting ready in position. Call light in reach and aware of how to use it.
[2025-05-04 18:25] LABS: Potassium, Blood 3.7 mmol/L (3.5-5.5); Sodium, Blood 131.0 mmol/L (136-145)
--- NOTE | 2025-05-04 19:22 | NUR ---
DR KURTZ NOTIFIED THAT PT SODIUM 131, POTASSIUM 3.7. ORDERS GIVEN FOR 1 TABLET OF SODIUM CHLORIDE @ 2200, AND TO DRAW AM LABS @ [address] KURTZ BY 0500 WITH LAB RESULTS.
[2025-05-04 19:45] VITALS: BP 171/114
--- NOTE | 2025-05-04 20:10 | NUR ---
END OF SHIFT SUMMARY: A&Ox4. SHOWS PROFICIENT ABILITY TO UTILIZE CALL SYSTEM. REQUIRES ENCOURAGEMENT TO PARTICIPATE IN HIS OWN CARE. WILL SOMETIMES REPORT BEING WEAK AND UNABLE TO STAND AND OTHER TIMES STANDS UP WITHOUT ANY DIFFICULTY. VSS. TELE. CONTINENT OF BOWEL AND BLADDER. MULTIPLE LOOSE BOWEL MOVEMENTS. SUREPREP STARTED THIS EVENING. RAYMOND PATENT AND DRAINING YELLOW URINE TO GRAVITY. BREATHING EVEN AND UNLABORED c RA. CONTINENT OF BOWEL AND BLADDER. NPO x BOWEL PREP IN ANTICIPATION OF EGD/COLO TOMORROW MORNING. MEDS WHOLE c FLUIDS. PG JABARI FLUSHES BUT DOES NOT DRAW. BED IN LOWEST POSITION, CALL LIGHT WITHIN REACH, ALL NEEDS MET. REPORT TO ONCOMING NURSE.
[2025-05-04 22:50] LABS: Protein, Urine Quantitative 49.9 mg/dL (0.0-11.9)
--- NOTE | 2025-05-05 04:13 | NUR ---
SHIFT SUMMARY NOC PT A/O X 4. ANXIOUS, BUT COOPERATIVE WITH CARE. BP ELEVATED AND HYDRALAZINE GIVEN ALONGSIDE SCHEDULED COZAAR AT BEDTIME. PT ON SUREPREP FOR COLONOSCOPY TODAY AND STOOLS AND LIQUID AND CLEAR LIGHT BROWN. SECOND DOSE OF SUREPREP STARTED THIS AM. PT ON ENTERIC ISOLATION FOR NOROVIRUS. POWERGLIDE IN JABARI DOES NOT DRAW. PT ON TELE SINUS TACH IN LOW 100'S. PT PAIN AND ANXIETY MANAGED PER EMAR. RAYMOND IN PLACE FOR ACUTE RETENTION. PT CURRENTLY RESTING WITH BED IN LOWEST POSITION, AND CALL LIGHT WITHIN REACH.
[2025-05-05 06:18] VITALS: BP 172/98
[2025-05-05 06:42] LABS: Hematocrit 31.6 % (37.0-53.0); Hemoglobin 9.7 g/dL (13.5-17.5)
[2025-05-05 07:02] LABS: Albumin, Blood 3.0 g/dL (3.4-5.0); Anion Gap 9 mmol/L (3-11); Blood Urea Nitrogen 22 mg/dL (8-24); CO2, Blood 28 mmol/L (21-32); Calcium, Blood 8.8 mg/dL (8.5-10.1); Chloride, Blood 99 mmol/L (98-108); Creatinine, Blood 0.46 mg/dL (0.60-1.20); Glucose, Blood 97 mg/dL (70-99); Magnesium, Blood 2.0 mg/dL (1.6-2.4); Phosphorus, Blood 3.1 mg/dL (2.5-4.9); Potassium, Blood 3.2 mmol/L (3.5-5.5); Sodium, Blood 133 mmol/L (136-145)
[2025-05-05] MEDS ORDERED: Potassium Chl 10MEQ/Water100ML 100 ML IV SCH (07:50)
[2025-05-05 08:01] VITALS: BP 166/116
[2025-05-05] MEDS ORDERED: NS 250 ML IV PRN (08:30)
[2025-05-05] MEDS ORDERED: Albuterol 2.5 MG/3 ML VIAL INH PRN (11:10)
[2025-05-05] MEDS ORDERED: Ondansetron HCl 2 MG / ML 2ML Vial IV PRN (11:10)
[2025-05-05 16:14] VITALS: BP 174/95
--- NOTE | 2025-05-05 18:03 | NUR ---
End of shift summary: Patient is alert and oriented x4 and able to make needs known. Patient calls for frequent assistance d/t having bowel prep today and multiple loose stools. Patient with no Endoscopy/Colonoscopy completed today and will have as outpatient per Dr. Cardenas. Carlos catheter removed per order at 230pm. Patient denies CP or pressure, SOB, N/V today but does have some pain and medications administered per EMAR. Patient resting comfortably at this time. Call light within reach and bed in lowest position. Will continue to monitor until next shift nurse arrives and report is given.
[2025-05-05 19:52] VITALS: BP 175/88
--- NOTE | 2025-05-05 23:11 | NUR ---
PATIENT AND SPOUSE REPORT HE HAS RESTLESS LEGS. HOSPITALIST PHILIP SALCIDO ORDERED KLONOPIN 1 MG X ONE A TRIAL. WCTM.
[2025-05-06 01:51] VITALS: BP 151/97
--- NOTE | 2025-05-06 04:10 | NUR ---
SHIFT SUMMARY PATIENT HAD NO ACUTE CHANGES. ALERT ORIENTED AND SBA TO BSC. DENIES CHEST PAIN, SOB, AND N/V. AFEBRILE. HYPERTENSIVE BEFORE SCHEDULE BP MED. TELE MONITOR NSR 70. REPORTED BACK/NECK PAIN X 2 AND OXYCODONE AND TYLENOL ALTERNATED. FLUID RESTRICTIONS 1,200 mL. CALL LIGHT IN REACH. BED IN LOWEST POSITION. WILL CONTINUE TO MONITOR UNTIL DAY SHIFT NURSE ASSUMES CARE.
[2025-05-06 04:16] VITALS: BP 135/84
[2025-05-06 06:05] LABS: Hematocrit 29.7 % (37.0-53.0); Hemoglobin 8.9 g/dL (13.5-17.5)
[2025-05-06 06:47] LABS: Albumin, Blood 2.9 g/dL (3.4-5.0); Anion Gap 10 mmol/L (3-11); Blood Urea Nitrogen 20 mg/dL (8-24); CO2, Blood 26 mmol/L (21-32); Calcium, Blood 9.1 mg/dL (8.5-10.1); Chloride, Blood 103 mmol/L (98-108); Creatinine, Blood 0.47 mg/dL (0.60-1.20); Glucose, Blood 105 mg/dL (70-99); Magnesium, Blood 2.2 mg/dL (1.6-2.4); Phosphorus, Blood 3.4 mg/dL (2.5-4.9); Potassium, Blood 3.5 mmol/L (3.5-5.5); Sodium, Blood 135 mmol/L (136-145)
[2025-05-06 07:31] VITALS: BP 178/96
[2025-05-06] MEDS ORDERED: FURO20 PO (11:08)
[2025-05-06] MEDS ORDERED: HYDRA25 PO (11:08)
[2025-05-06] MEDS ORDERED: LOSA25 PO (11:09)
[2025-05-06] MEDS ORDERED: MELATONIN5 M1 PO (11:09)
[2025-05-06] MEDS ORDERED: POKONZA10 MEQ PO (11:10)
[2025-05-06] MEDS ORDERED: SODCHL1 PO (11:11)
[2025-05-06] MEDS ORDERED: GORMEL TEN228 G1 (11:12)
[2025-05-06] MEDS ORDERED: VISBIOME 112.51 EACH PO (11:13)
[2025-05-06] MEDS ORDERED: AMOCLA875 PO (11:13)
[2025-05-06] MEDS ORDERED: FERSU300 PO (11:13)
[2025-05-06] MEDS ORDERED: ONDA4ODT MM (11:14)
--- NOTE | 2025-05-06 11:37 | NUR ---
PATIENT DISCHARGE INSTRUCTIONS REVIEWED. REVIEWED MEDICATIONS, FOLLOW UP APPOINTMENTS AND WHEN TO SEEK MEDICAL TREATMENT. HARD COPY PRESCRIPTION GIVEN TO ISAMAR. PAPER CLIPPED INTO THE INSIDE OF THE PATIENTS DISCHARGE FOLDER AND SHOWN TO PATIENT. NO CONCERNS.
== END 2025-05-06 12:05 | disposition home health service (06) | DRG 644 ==
LOC: ER 20:32 → ICUE 22:56 → PCU 22:56 → ICUE 04-28 01:32 → PCU 04-28 13:10 → MEDS 05-04 15:28
PROVIDERS: Family Medicine; Internal Medicine; Internal Medicine Nephrology; Student in an Organized Health Care Education/Training Program; Surgery; ADMIT Student in an Organized Health Care Education/Training Program
PROC: 0T9B70Z Drainage of Bladder with Drainage Device, Via Natural or Artificial Opening (ICD-10-PCS; 2025-04-27)
PROC: 3E02340 Introduction of Influenza Vaccine into Muscle, Percutaneous Approach (ICD-10-PCS; 2025-04-27)
PROC: 30233N1 Transfusion of Nonautologous Red Blood Cells into Peripheral Vein, Percutaneous Approach (ICD-10-PCS; principal; 2025-04-28)
PROC: 3E03329 Introduction of Other Anti-infective into Peripheral Vein, Percutaneous Approach (ICD-10-PCS; 2025-05-01)
DX: E22.2 Syndrome of inappropriate secretion of antidiuretic hormone (principal); A08.39 Other viral enteritis; K92.1 Melena; N39.0 Urinary tract infection, site not specified; D62 Acute posthemorrhagic anemia; E87.6 Hypokalemia; G40.909 Epilepsy, unspecified, not intractable, without status epilepticus; R63.1 Polydipsia; R35.0 Frequency of micturition; M54.9 Dorsalgia, unspecified; G25.81 Restless legs syndrome; R31.29 Other microscopic hematuria; D50.9 Iron deficiency anemia, unspecified; K63.89 Other specified diseases of intestine; F41.9 Anxiety disorder, unspecified; I10 Essential (primary) hypertension; G47.00 Insomnia, unspecified; B96.89 Other specified bacterial agents as the cause of diseases classified elsewhere; T42.6X5A Adverse effect of other antiepileptic and sedative-hypnotic drugs, initial encounter; R33.8 Other retention of urine; G93.89 Other specified disorders of brain; R80.9 Proteinuria, unspecified; Z88.8 Allergy status to other drugs, medicaments and biological substances; Z98.890 Other specified postprocedural states; Z79.899 Other long term (current) drug therapy
CPT/HCPCS: 0202U; 36415; 36430; 51702; 51798; 70553; 71045; 74177; 80048; 80053; 80069; 81001; 81050; 82024; 82533; 82570; 82607; 82728; 82746; 82947; 83010; 83540; 83550; 83605; 83615; 83690; 83735; 83880; 83930; 83935; 84100; 84132; 84156; 84295; 84300; 84443; 84550; 85014; 85018; 85025; 85027; 85045; 85651; 86140; 86850; 86900; 86901; 86923; 87077; 87086; 87186; 87507; 97110; 97116; 97162; 97530; 99285; A9270; A9579; C1751; J0360; J0696; J1750; J1938; J2916; J3360; J3480; J7030; J7040; J7050; P9016; Q9967